=== PATIENT | female | born 1935 | race Caucasian/White ===

== ENCOUNTER 2016-09-20 13:37 | Observation (INO) | payer OTHER, MEDICARE ==
[~2016-09-20] VITALS: Ht 157.5 cm; Wt 48.1 kg
[~2016-09-20 13:37] MED LIST: ASPIR 8181 MG PO; ASPIRIN EC81 M1 PO; AUGMENTIN 875 M1 TAB PO; BENZONATATE100 MG PO; CALCIUM + D 6001 TAB PO; CENTRUM SILVER1 EAC3 PO; CITRUCEL PO; DONEPEZIL HCL5 MG PO; ENABLEX15 M1 PO; ENABLEX15 MG PO; ISOSORBIDE MONO30 M1 PO; ISOSORBIDE MONO30 MG PO; METOPROLOL SUCC25 MG PO; MIDODRINE HCL2.5 M1 PO; MIDODRINE PO; VITAB121000 PO; VYTORIN; VYTORIN 10 MG-41 TAB PO; VYTORIN 10-401 EACH PO
--- NOTE | 2016-09-20 13:44 | NUR ---
PT C/O FEELING DIZZY SINCE TUESDAY. TAKES MIDODRINE 2.5 MG FOR ORTHOSTATIC HYPOTENSION. PT DENIES NAUSEA, STATES WHEN SHE EVEN MOVES HER HEAD NOW SHE BECOMES DIZZY
[2016-09-20] MEDS ORDERED: ALENDRONATE SOD70 M2 PO (14:26)
[2016-09-20] MEDS ORDERED: VITAMIN D31000 UNI2 PO (14:27)
[2016-09-20] MEDS ORDERED: VITAMIN B-121000 MC3 PO (14:27)
--- NOTE | 2016-09-20 14:59 | ED AMS/SEIZURE/WEAK/DIZZY ---
History of Present Illness General Chief Complaint: Dizziness Stated Complaint: DIZZY-PT HAS DEMETIA PER FAMILY MEMBER Source: patient, family, old records Exam Limitations: dementia Vital Signs & Intake/Output Vital Signs & Intake/Output Vital Signs Date Time Temp Pulse Resp B/P Pulse O2 O2 Flow FiO2 Ox Delivery Rate 09/20 2212 96.9 52 18 150/70 95 Room Air 09/20 2025 96.9 58 18 154/84 96 Room Air 09/20 1851 97.0 55 19 171/81 98 Room Air Room Air 09/20 1422 Room Air Room Air 09/20 1343 98.4 59 20 119/71 96 Room Air Allergies Coded Allergies: docusate (From COLACE) (PER PT DOESNT REMEMBER REACTION 10/27/15) Reconcile Medications Alendronate Sodium 70 MG TABLET 1 TAB PO QMON BONE (Reported) in the morning, at least 30 minutes before the first food, beverage, or medication of the day Aspirin (Ecotrin*) 81 MG TABLET.DR 1 TAB PO DAILY HEART HEALTH (Reported) Cholecalciferol (Vitamin D3) 1,000 UNIT TABLET 1 TAB PO DAILY SUPPLEMENT ( Reported) Cyanocobalamin (Vitamin B-12) 1,000 MCG TABLET 1 TAB PO DAILY SUPPLEMENT ( Reported) Darifenacin Hydrobromide (Enablex) 15 MG TAB.ER.24H 1 TAB PO DAILY BLADDER ( Reported) Donepezil HCl 5 MG TABLET 1 TAB PO DAILY DEMENTIA (Reported) Ezetimibe/Simvastatin (Vytorin 10-40 MG Tablet) 1 EACH TABLET 1 TAB PO DAILY CHOLESTEROL (Reported) Isosorbide Mononitrate (Isosorbide Mononitrate ER) 30 MG TAB.ER.24H 1 TAB PO DAILY HEART (Reported) Midodrine HCl 2.5 MG TABLET 1 TAB PO BID BP (Reported) Multivit-Min/FA/Lycopen/Lutein (Centrum Silver Tablet) 0.4 MG-300 MCG-250 MCG TABLET 1 TAB PO DAILY SUPPLEMENT (Reported) Triage Note: PT C/O FEELING DIZZY SINCE TUESDAY. TAKES MIDODRINE 2.5 MG FOR ORTHOSTATIC HYPOTENSION. PT DENIES NAUSEA, STATES WHEN SHE EVEN MOVES HER HEAD NOW SHE BECOMES DIZZY Triage Nurses Notes Reviewed? yes HPI: 81 yo F PMH HTN, HLD, CAD/MN, orthostatic hypotension (on midodrine) presenting with dizziness. Patient has dementia, poor short term memory, limited historian, endorses dizziness described as lightheadedness, minimal "room spinning", denies chest pain, SOB, palpitations, AP, N/V, HEENT Sx. Per family patient has been complaining of dizziness for the past 3-4 days, constant, difficulty ambulating around the house, using stool as makeshift walker, denies falls, trauma, no other neurologic Sx. Patient has hx of orthostatic hypotension, takes midodrine, spoke with firearms expert for assistance, sent to ED for evaluation. (CITLALY YANCEY MD) Past History Travel History Traveled to [place] past 21 day No Medical History Any Pertinent Medical History? none Neurological: NONE EENT: cataracts Cardiovascular: CAD, hypertension, hyperlipidemia Respiratory: NONE Gastrointestinal: diverticulitis Hepatic: NONE Renal: NONE Musculoskeletal: NONE Psychiatric: NONE Endocrine: NONE Blood Disorders: NONE Cancer(s): NONE MEDICAL SECRETARY/Reproductive: NONE History of MRSA: No History of VRE: No History of CDIFF: No Surgical History Surgical History: WRIST SURGERY Psychosocial History Who do you live with Spouse Services at Home NONE What is your primary language Belarusian Tobacco Use: Quit >30 days ago ETOH Use: denies use Illicit Drug Use: denies illicit drug use Family History Family History, If Any: Relation not specified for: *No pertinent family history Hx Contributory? Yes (CITLALY YANCEY MD) Review of Systems Review of Systems Constitutional: Denies: chills, fever. EENTM: Denies: blurred vision, double vision, ear pain, hearing changes. Respiratory: Denies: cough, orthopnea, wheezing. Cardiovascular: Denies: chest pain, palpitations, peripheral edema, syncope. GI: Reports: no symptoms. Genitourinary: Reports: no symptoms. Musculoskeletal: Reports: no symptoms. Skin: Reports: no symptoms. Neurological/Psychological: Reports: confusion, dementia. Denies: ataxia, headache, numbness, paresthesia, weakness. Hematologic/Endocrine: Reports: no symptoms. Immunologic/Allergic: Reports: no symptoms. All Other Systems: Reviewed and Negative (CITLALY YANCEY MD) Physical Exam Physical Exam General Appearance: no apparent distress, alert, awake Head: atraumatic, normal appearance Eyes: Bilateral: normal appearance, PERRL, EOMI. Ears, Nose, Throat: normal pharynx Neck: normal inspection, supple, full range of motion Respiratory: normal breath sounds, no respiratory distress, lungs clear Cardiovascular: regular rate/rhythm, normal peripheral pulses Gastrointestinal: normal bowel sounds, soft, non-tender Back: normal inspection, normal range of motion Extremities: normal range of motion Neurologic/Psych: See below Comments: Neurologic Exam: Cranial nerves intact, speech fluid (at baseine per family), no visual field deficits, No pronator drift, no sensory deficits in extremities, strength 5/5 throughout, normal [id number] and [id number] testing, gait testing deferred Core Measures ACS in differential dx? Yes CVA/TIA Diagnosis: No Severe Sepsis Present: No Septic Shock Present: No (NAYE XIONG,CITLALY) Progress Differential Diagnosis: arrythmia, benign positional vertigo, CVA/stroke, labrynthitis, Meniere's disease, postural hypotension, presyncope Plan of Care: Orders Procedure Date/time Status Place in observation 09/20 2221 Active EKG 09/20 2031 Active TROPONIN LEVEL 09/20 1903 Complete MISTAKE 09/20 1448 Active TROPONIN LEVEL 09/20 1448 Complete CBC WITHOUT DIFFERENTIAL 09/20 1448 Complete BASIC METABOLIC PANEL 09/20 1448 Complete EKG 09/20 1344 Active Laboratory Tests 09/20/16 1903: Troponin I 0.02 09/20/16 1610: Anion Gap 9, Estimated GFR > 60, BUN/Creatinine Ratio 20.0, Glucose 85, Calcium 9.3, Troponin I 0.01 09/20/16 1535: CBC w Diff NO MAN DIFF REQ, RBC 4.40, MCV 95.5, MCH 32.0 H, RDW 14.4, MPV 10.5 H, Gran % 64.5, Lymphocytes % 24.6, Monocytes % 8.6, Eosinophils % 1.7, Basophils % 0.6, Absolute Granulocytes 5.6, Absolute Lymphocytes 2.1, Absolute Monocytes 0.7 H, Absolute Eosinophils 0.1, Absolute Basophils 0.1, PUBS MCHC 33.5 Physician MDM: 81 yo F PMH HTN, HLD, CAD, postural hypotension presenting with dizziness x 3 days. HR high 50s, otherswise VSS, neurologic exam as above. DDx: Orthostasis/postural hypotension, ACS, symptomatic bradycardia, less likely peripheral vertigo (BPPV, labrynthitis, ect.) or central vertigo (CVA). ECG with new TWI II, III, aVF, V5-V6. Troponin 0.01. CBC, BMP unremarkable. On re- examiantion patient subjectively improved, dizziness resolved, sitting upright in bed without complaints. Discussed case with Dr. Presley (patients firearms expert ), discussed ECG changes, no changes to midodrine dosing, if 2nd troponin negative and patient remains symptomatic, ok to discharge with outpatient cardiology follow up. Plan for 2nd troponin and patient still asymptomatic D/C. D/W Dr. Alfred. (NAYE XIONG,CITLALY) Initial ED EKG: normal sinus rhythm (CITLALY AYNCEY MD) Comments: 09/20/2016 8:32:09 PM patient signed out to me by Dr. Yancey. Repeat EKG and troponin pending. 09/20/2016 9:09:04 PM patient repeat EKG shows resolution of T-wave inversions seen on previous EKG. I am paging Dr. Presley. Madalyn is asymptomatic at this time. (RICHAR XIONG,COLLINS Hinton) Departure Departure Disposition: HOME OR SELF CARE Condition: Stable Clinical Impression Primary Impression: Dizziness Referrals: KEYUR ROSE-BERKLEY,NATACHA Martínez (PCP/Family) Departure Forms: Customer Survey General Discharge Information (NAYE XIONG,CITLALY) Observation Note Spoke With: VIOLETTE MCCALL MD Physician Advisor Notified: MELISSA XIONG,PANCHO Up Place Patient In: Non-ED OBS Care Area Rationale for Observation: My rational for observation is as follows patient has a history of coronary artery disease and myocardial infarction and hypertension. She is also 81 years old. She has reversible EKG changes documented in this emergency department. She presented with dizziness that could very well be related to cardiac disease. I do not feel she is a good candidate for outpatient management at this time based on her dynamic EKG changes. I feel that if she exerts herself she could precipitate acute coronary syndrome or MN. I feel she now requires tenuous cardiac monitoring and continued serial troponin determinations and EKGs. Cardiology consultation showed also be obtained review and adjustment of the patient's medical management. (RICHAR XIONG,COLLINS Hinton) Departure Comments 09/20/16 I've seen and personally examined the patient and I agree with Dr Branham evaluation. Patient awake and alert. No complaints on my evaluation. Nonspecific EKG changes. Serial troponins and repeat EKG, care reviewed with the patient's firearms expert. (COLLINS LAFRED DO)
--- NOTE | 2016-09-20 15:41 | NUR ---
LABS DRAWN AND SENT (BLUE,SST,PINK,LAV,JUSTICE)
--- NOTE | 2016-09-20 15:55 | NUR ---
AMBULATED PT AT THIS TIME NO ASSIST NEEDED
[2016-09-20 15:56] LABS: ABSOLUTE BASOPHIL COUNT 0.1 /CUMM (0.0-0.2); ABSOLUTE EOSINOPHIL COUNT 0.1 /CUMM (0.0-0.7); ABSOLUTE GRANULOCYTE CT 5.6 /CUMM (1.4-6.5); ABSOLUTE LYMPH COUNT 2.1 /CUMM (1.2-3.4); ABSOLUTE MONOCYTE COUNT 0.7 /CUMM (0.10-0.60); BASOPHIL % 0.6 % (0.0-2.0); EOSINOPHIL % 1.7 % (0-5); GRANULOCYTE % 64.5 % (42.2-75.2); MEAN CORPUSCULAR HGB CONC 33.5 G/DL (33.0-37.0); MEAN CORPUSCULAR VOLUME 95.5 FL (81.0-99.0); MEAN PLATELET VOLUME 10.5 FL (7.4-10.4); PLATELET COUNT 205 /CUMM (130-400); RBC DISTRIBUTION WIDTH 14.4 % (11.5-14.5); WHITE BLOOD CELL COUNT 8.6 /CUMM (4.8-10.8)
--- NOTE | 2016-09-20 16:01 | NUR ---
SST HEMOLYZED. NEEDS REDRAW.
--- NOTE | 2016-09-20 19:00 | NUR ---
PER PT WILL HAVE REPEAT EKG AND TROP.
--- NOTE | 2016-09-20 22:24 | NUR ---
AT BEDSIDE FOR EVAL AT THIS TIME
--- NOTE | 2016-09-20 23:22 | NUR ---
PT MEDICATED WITH MIDODRINE AND NS INFUSING AT THIS AT 75ML/HR AT THIS TIME. DENIES ANY COMPLAINTS.
[2016-09-21 00:50] VITALS: BP 180/80
--- NOTE | 2016-09-21 01:30 | History & Physical ---
CARLITOS XIONG,WILFREDO 09/21/16 0130: General Information and HPI MD Statement: I have seen and personally examined SHIRLEY RAMIRES and documented this H&P. The patient is a 81 year old F who presented with a patient stated chief complaint of [dizziness]. 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 Given patient's baseline dementia and poor memory she is a very limited historian. During the interview she was unsure of why she was admitted though she admitted some dizziness earlier during the day. She could not corroborate any further details. At the time she denies any chest pain, shortness of breath, palpitations, nausea, or vomiting. There is no family member in the room to corroborate any further details. But per ED documentation, patient had been complaining of dizziness for the past 3-4 days along with difficulty with ambulation. Normally she does not require assistance for walking, but at this time she is apparently using a stool as a makeshift walker. No other neurologic deficits were noted by family members. Of note, patient has had previous admissions at [facility]. Pt was seen in 2015 for pneumonia and collapse of an upper lobe. Subsequently, in September she was admitted for dizziness, orthostasis and bradycardia. At that time patient did not want to pursue aggressive management including pacemaker. A nuclear stress test in November 2013 showed ischemia that she also did not want to aggressively pursue. Her echo in September 2013 showed no obvious regional wall motion abnormalities and EF of 65% Initial EKG during this admission showed T-wave inversions but a repeat EKG within 30 minutes showed resolution of the t-waves. Allergies/Medications Allergies: Coded Allergies: docusate (From COLACE) (PER PT DOESNT REMEMBER REACTION 10/27/15) Home Med list Alendronate Sodium 70 MG TABLET 1 TAB PO QMON BONE (Reported) in the morning, at least 30 minutes before the first food, beverage, or medication of the day Aspirin (Ecotrin*) 81 MG TABLET.DR 1 TAB PO DAILY HEART HEALTH (Reported) Cholecalciferol (Vitamin D3) 1,000 UNIT TABLET 1 TAB PO DAILY SUPPLEMENT ( Reported) Cyanocobalamin (Vitamin B-12) 1,000 MCG TABLET 1 TAB PO DAILY SUPPLEMENT ( Reported) Darifenacin Hydrobromide (Enablex) 15 MG TAB.ER.24H 1 TAB PO DAILY BLADDER ( Reported) Donepezil HCl 5 MG TABLET 1 TAB PO DAILY DEMENTIA (Reported) Ezetimibe/Simvastatin (Vytorin 10-40 MG Tablet) 1 EACH TABLET 1 TAB PO DAILY CHOLESTEROL (Reported) Isosorbide Mononitrate (Isosorbide Mononitrate ER) 30 MG TAB.ER.24H 1 TAB PO DAILY HEART (Reported) Midodrine HCl 2.5 MG TABLET 1 TAB PO BID BP (Reported) Multivit-Min/FA/Lycopen/Lutein (Centrum Silver Tablet) 0.4 MG-300 MCG-250 MCG TABLET 1 TAB PO DAILY SUPPLEMENT (Reported) Compliance With Home Meds: UNKNOWN Past History Travel History Traveled to [place] past 21 day No Medical History Neurological: NONE EENT: cataracts Cardiovascular: CAD, hypertension, hyperlipidemia, NSTEMI Respiratory: NONE, pneumonia Gastrointestinal: diverticulitis Hepatic: NONE Renal: NONE Musculoskeletal: NONE Psychiatric: NONE Endocrine: NONE Blood Disorders: NONE Cancer(s): NONE HVAC DESIGNER/Reproductive: NONE History of MRSA: No History of VRE: No History of CDIFF: No Surgical History Surgical History: WRIST SURGERY Past Family/Social History Family History Relations & Conditions if any Relation not specified for: *No pertinent family history Psychosocial History Where do you live? Home Who Do You Live With? self Services at Home: NONE Primary Language: Gambian Smoking Status: Unknown If Ever Smoked ETOH Use: denies use Illicit Drug Use: denies illicit drug use Functional Ability ADLs Independent: dressing, eating, toileting, bathing. Ambulation: independent IADLs Independent: shopping, housework, finances, food prep, telephone, transportation , medication admin. Review of Systems Review of Systems Constitutional: Reports: no symptoms. EENTM: Denies: blurred vision, double vision, eye pain. Cardiovascular: Denies: chest pain, palpitations, syncope. Respiratory: Denies: cough, short of breath. GI: Denies: abdominal pain, nausea, vomiting. Genitourinary: Denies: pain. Musculoskeletal: Reports: no symptoms. Skin: Reports: no symptoms. Neurological/Psychological: Reports: no symptoms. Exam & Diagnostic Data Last 24 Hrs of Vital Signs/I&O Vital Signs Date Time Temp Pulse Resp B/P Pulse O2 O2 Flow FiO2 Ox Delivery Rate 09/21 0050 97.4 62 20 180/80 95 Room Air 09/20 2213 96.9 52 18 150/70 95 Room Air 09/20 2026 96.9 58 18 154/84 96 Room Air 09/20 1851 97.0 55 19 171/81 98 Room Air Room Air 09/20 1422 Room Air Room Air 09/20 1343 98.4 59 20 119/71 96 Room Air Intake & Output 09/21 0800 09/21 0000 09/20 1600 Intake Total 0 Output Total 600 Balance -600 0 Intake, Oral 0 Output, Urine 600 Patient 483.983 kg Weight Physical Exam General Appearance Alert, Cooperative, No Acute Distress Skin No Rashes, No Breakdown, No Significant Lesion HEENT Atraumatic, PERRLA, EOMI, Mucous Membr. moist/pink Neck Supple Cardiovascular Regular Rate, Normal S1, Normal S2 Lungs Normal Air Movement Abdomen Soft, No Tenderness Neurological Normal Speech, Strength at 5/5 X4 Ext, Normal Tone, Sensation Intact, Cranial Nerves 3-12 NL Extremities Normal Pulses Last 24 Hrs of Labs/Unruly: Laboratory Tests 09/20/16 1903: Troponin I 0.02 09/20/16 1610: Anion Gap 9, Estimated GFR > 60, BUN/Creatinine Ratio 20.0, Glucose 85, Calcium 9.3, Troponin I 0.01 09/20/16 1535: CBC w Diff NO MAN DIFF REQ, RBC 4.40, MCV 95.5, MCH 32.0 H, RDW 14.4, MPV 10.5 H, Gran % 64.5, Lymphocytes % 24.6, Monocytes % 8.6, Eosinophils % 1.7, Basophils % 0.6, Absolute Granulocytes 5.6, Absolute Lymphocytes 2.1, Absolute Monocytes 0.7 H, Absolute Eosinophils 0.1, Absolute Basophils 0.1, PUBS MCHC 33.5 Assessment/Plan Assessment: This is an 81-year-old female past medical history significant for CAD, and STEMI, SA node dysfunction with first-degree A-V block and LAFB, dementia, orthostatic hypotension on Midrin presented with chief complaint of dizziness. In ED she was noted to have EKG changes. Given significant cardiac history with dynamic EKG changes, patient was admitted to telemetry for ACS rule out. PLAN: 1. EKG changes: In ED patient was noted to have T-wave inversions. Repeat EKG within 30 minutes returned to baseline. She does have a history of CAD. Patient denies any chest pain at this time. * Monitor on telemetry * Monitor EKG and troponin * Echocardiogram * IV hydration * Cardiology consult in a.m. 2. Dizziness: Patient came in for CC dizziness. She has had previous admission for same reason. At that time she was started on Midodrine. She continues to be on this medication. In ED she was found to be bradycardic with heart rate as low as 52. Her blood pressure between 120/71 and 180/80. Satting well on room air. Glucose 85. * Gentle hydration * Continue Midrin * Orthostatic vitals qshift 3. Dementia. Chronic and stable * Continue donepezil 5 mg by mouth daily 4. Hx of HTN/HLD: Chronic and stable * Continue atorvastatin 20 mg by mouth daily * Continue Imdur 30 mg by mouth daily * Continue baby aspirin DNR/DNI REGULAR DIET CHEMICAL DVT PPX As Ranked By This Provider Problem List: 1. Dizziness 2. Bradycardia 3. Orthostatic hypotension Core Measures/Miscellaneous Acute Coronary Syndrome ACS Diagnosis: No Cerebrovascular Accident CVA/TIA Diagnosis: No Congestive Heart Failure CHF Diagnosis: No Venous Thromboembolism VTE Risk Factors: Acute medical illness, Age > 40 VTE Prophylaxis Ordered Inpt: Pharm- Lovenox No Mech VTE prophylaxis d/t: No contraindications No VTE Pharm Prophylaxis d/t: No contraindications VTE Diagnosis: No VTE Type: NONE VTE Confirmed by (Test): NONE Severe Sepsis Severe Sepsis Present: No Septic Shock Septic Shock Present: No Miscellaneous Documentation Attending Case Discussed With: STEFANY XIONG,VIOLETTE Primary Care Physician: NATACHA TREJO Patient sees these Specialists Dr. Presley Level of Patient Care: Telemetry Consults Needed: Consulting Specialty: Cardiology ABHINAV XIONG,SUSIE 09/21/16 0140: Resident Review Statement Resident Statement: examined this patient, discussed with customer experience intern Other Findings: This is an 81-year-old lady with a past history significant for hypertension, hyperlipidemia coronary artery disease status post VA, chronic orthostatic hypotension on Midrin, poor historian secondary to dementia, presented to the emergency room this evening with a chief complaint of dizziness and lightheadedness which she described as "room spinning". Stay lasted a few minutes without any other symptoms, no chest pain, no shortness of breath, no palpitations. Per family she had been complaining of dizziness for the past few days. Physical exam Vital signs are stable Lungs clear to auscultation bilaterally Cardiovascular exam, faint 1/6 holosystolic murmur Abdomen soft, nontender, bowel sounds are present Neuro exam intact Labs are benign 2 sets of troponin thus far have been negative Assessment- 1. Dizziness, has a history of chronic vertigo, stroke unlikely 2. History of hypertension 3. History of hyperlipidemia 4. History of dementia Plan- Telemetry admit Trend troponin and EKG Echocardiogram IV fluid hydration Carotid Dopplers Cardiology consult in a.m. Pain pathway Heart healthy diet DVT prophylaxis with subcutaneous heparin DNR/I STEFANY XIONG, [facility] 09/21/16 0212: Attending MD Review Statement Attending Statement Attending MD Statement: examined this patient, discuss w/resident/PA/WEAVING INSTRUCTOR, agreed w/resident/PA/WEAVING INSTRUCTOR Attending Assessment/Plan: 81 yo F with h/o dementia, CAD s/p VA, HTN, orthostatic hypotension on midodrine , cardiac conduction disease (sinus node dysfunction) with previous asymptomatic bradycardia, is here for episodes of dizziness especially when getting up from sitting or lying down position. She reports it is more of 'spinning sensation', but never felt she is going to 'pass out'. Patient denies any symptoms on my eval. No nausea, vomiting, diarrhea or urinary symptoms. I spoke with patient's manohar who reports that over the past 1 week, patient has had more frequent dizzy spells where in once she was about to fall however did not. Patient is most of the times not able to follow the practice of getting up slowly. Patient is pretty active and likes to do her routine household activities. She was admitted for similar in September 2015. Vitals are stable except for positive orthostats. Neuro exam nonfocal. Labs: unremarkable. Initial EKG: SR with TWI in lead V4-6 and inferior leads. Troponin was neg. Repeat EKG shows resolution of the TWI. Echo (2015): EF 65%, no pulmonary htn. 1. Dizziness 2/2 orthostatic hypotension, rule out arrhythmias. 23 Obs on Tele, gentle hydration. Recehck orthostats in AM. Continue midodrine. Provide compression stockings. 2. EKG changes. Serial EKG and troponin, obtain Echo, Cardio consult. DVT ppx Lovenox. DNR/I.
[2016-09-21 08:38] VITALS: BP 176/78
[2016-09-21 10:11] VITALS: BP 130/54
--- NOTE | 2016-09-21 10:35 | Patient Discharge Instructions ---
Discharge Instructions General Discharge Information You were seen/treated for: Dizziness due to orthostatic hypotension Special Instructions: Please follow up with PCP and workers compensation consultant in 1 week. - Please take the midodrine 3X/day instead of 2X/day. 30 day script has been sent to [facility]. Diet Continue normal diet: Yes Recommended Diet: Heart Healthy Activity Full Activity/No Limits: Yes Acute Coronary Syndrome Inclusion Criteria At DC or during hospital stay patient has or had the following: ACS DIAGNOSIS No Discharge Core Measures Meds if any: Prescribed or Continued at Discharge Meds if any: NOT Prescribed or Continued at Discharge Congestive Heart Failure Inclusion Criteria At DC or during hospital stay patient has or had the following: CHF DIAGNOSIS No Discharge Core Measures Meds if any: Prescribed or Continued at Discharge Meds if any: NOT Prescribed or Continued at Discharge Cerebrovascular accident Inclusion Criteria At DC or during hospital stay patient has or had the following: CVA/TIA Diagnosis No Discharge Core Measures Meds if any: Prescribed or Continued at Discharge Meds if any: NOT Prescribed or Continued at Discharge Venous thromboembolism Inclusion Criteria VTE Diagnosis No VTE Type NONE VTE Confirmed by (Test) NONE Discharge Core Measures - Per Current guidelines, there needs to be overlap - treatment for the first 5 days of Warfarin therapy. - If discharged on Warfarin prior to 5 days of - overlap therapy, the patient will need to be - assessed for post discharge needs including - *Post discharge parental anticoagulation - *Warfarin and/or parental anticoagulation education - *Follow up date to check INR post discharge At least 5 days overlap therapy as Inpatient No Meds if any: Prescribed or Continued at Discharge Note: Overlap Therapy is Warfarin and Anticoagulant Meds if any: NOT Prescribed or Continued at Discharge
[2016-09-21 11:37] VITALS: BP 116/54
--- NOTE | 2016-09-21 14:46 | Discharge Summary ---
Visit Information Visit Dates Admission Date: 09/20/16 Discharge Date: 09/21/16 Hospital Course Course Attending Physician: Dr. 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 She was observed for 24 hours, with resolution of the T wave inversions and negative troponins. No events on telemetry. The dizziness is most likely due to orthostatic hypotension, since she gives hx of getting dizzy when she moves quickly. The orthostats vitals today was negative. Echocardiogram was done, results still pending. Pt was instructed to follow up with PCP and human factors advisor lead. Pt discharged on midodrine 3X/day. At discharge, niece reported that pt was dizzy, although pt herself denied it. Allergies: Coded Allergies: docusate (From COLACE) (PER PT DOESNT REMEMBER REACTION 10/27/15) Disposition Summary Disposition Principal Diagnosis: Dizziness due to orthostatic hypotension Additional Diagnosis: Bradycardia Discharge Disposition: home health services Discharge Instructions General Discharge Information Code Status: Do Not Resucitate/Intubat Patient's Diet: Heart healthy Patient's Activity: As tolerated Follow-Up Instructions/Appts: You were seen/treated for: Dizziness due to orthostatic hypotension Special Instructions: Please follow up with PCP and human factors advisor lead in 1 week. Medications at Discharge Discharge Medications: Continue taking these medications: Aspirin (Ecotrin*) 81 MG TABLET. 1 Tablet ORAL DAILY Comments: Last Taken: 09/21/16 Time: 9:00 AM Multivit-Min/FA/Lycopen/Lutein (Centrum Silver Tablet) 0.4 MG-300 MCG-250 MCG TABLET 1 Tablet ORAL DAILY Comments: NOT GIVEN IN HOSPITAL Isosorbide Mononitrate (Isosorbide Mononitrate ER) 30 MG TAB.ER.24H 1 Tablet ORAL DAILY Comments: Last Taken: 09/21/16 Time: 9:00 AM Donepezil HCl (Donepezil HCl) 5 MG TABLET 1 Tablet ORAL DAILY Qty = 30 Comments: Last Taken: 09/21/16 Time: 9:00 AM Darifenacin Hydrobromide (Enablex) 15 MG TAB.ER.24H 1 Tablet ORAL DAILY Comments: NOT GIVEN IN HOSPITAL Ezetimibe/Simvastatin (Vytorin 10-40 MG Tablet) 1 EACH TABLET 1 Tablet ORAL DAILY Comments: NOT GIVEN IN HOSPITAL Alendronate Sodium (Alendronate Sodium) 70 MG TABLET 1 Tablet ORAL EVERY TUESDAY Qty = 12 Instructions: in the morning, at least 30 minutes before the first food, beverage, or medication of the day Comments: NOT GIVEN IN HOSPITAL Cyanocobalamin (Vitamin B-12) 1,000 MCG TABLET 1 Tablet ORAL DAILY Comments: NOT GIVEN IN HOSPITAL Cholecalciferol (Vitamin D3) 1,000 UNIT TABLET 1 Tablet ORAL DAILY Comments: NOT GIVEN IN HOSPITAL Midodrine HCl (Midodrine HCl) 2.5 MG TABLET 1 Tablet ORAL THREE TIMES DAILY Qty = 90 Instructions: Please follow up with Dr. Presley Comments: Last Taken: 09/21/16 Time: 9:00 AM This prescription has been renewed Copies To: KEYUR BOWER,NATACHA Martínez; LIS XIONG,NIRAV Krueger Attending MD Review Statement Documenting Attending: MAXIMO LIRIANO M.D Other Findings: Patient seen and examined. Lying comfortably and not in any acute distress. Very jovial lady. She was brought to the emergency room for evaluation by family due to complaints of dizziness. No family admits that she does get dizzy on and off they reported unusual in that patient found the symptoms significant enough to complain about it. In the emergency room she was found to have ischemic EKG changes was placed on observation status for further workup. Overnight patient remained asymptomatic. EKG changes have resolved. She did have positive orthostatic changes. She was followed by her human factors advisor lead recommendations at this time to increase her midodrine from twice daily to 3 times a day. Her symptoms are chronic and her family has been counseled on appropriate behavioral changes. They report that patient has used compression stockings in the past and does not like using them. with regards to her ischemic EKG changes cardiac catheterization would be with increasing however given her age and dementia as well as her current asymptomatic status conservative measures are being pursued for now and further discussions will continue as an outpatient with the cardiology service. She is not on any beta jayda or JOSE inhibitor due to her orthostatic hypotension. She is medically stable to be discharged home today.
[2016-09-21 16:38] VITALS: BP 152/72
[2016-09-21] MEDS ORDERED: MIDODRINE HCL2.5 M1 PO (17:20)
--- NOTE | 2016-09-21 17:43 | Cons- Cardiology ---
General Information and HPI Consulting Request Date of Consult: 09/21/16 Requested By: STEFANY XIONG,VIOLETTE Reason for Consult: New electrocardiographic changes. Source of Information: patient, old records Exam Limitations: dementia History of Present Illness: Mrs. Madalyn Ocampo is an 81-year-old female with a history of hypertension, dyslipidemia, and coronary artery disease (NSTEMI 02/15/1998; s/p cardiac catheterization [facility] [02/19/1998] that revealed diffusely small caliber vessels: LM-normal, LAD-mid mild [50%] narrowing, mild [50%] proximal and mid critical [99%] stenosis secondary diagonal branch, large, codominant LCx with total occlusion OM, large, codominant RCA with catheter- induced ostial spasm relieved with SL NTG; positive nuclear stress [12/19/2013] without symptoms or ST changes) and orthostatic hypotension who became "dizzy" while shopping yesterday with her nieces and who was recommended ED evaluation. In the ED she was again found to be orthostatic, but was also found to have "new", transient ST-T wave abnormalities consistent with possible ischemia that spontaneously resolved. She has had no chest discomfort, shortness of breath, palpitations, etc. or evidence of myocardial necrosis by serial cardiac troponins. We have been clinically monitoring the situation, as far as her coronary disease is concerned, as she has not wanted to pursue an aggressive course of management and has been completely asymptomatic despite an active lifestyle. Allergies/Medications Allergies: Coded Allergies: docusate (From COLACE) (PER PT DOESNT REMEMBER REACTION 10/27/15) Home Med List: Alendronate Sodium 70 MG TABLET 1 TAB PO QMON BONE (Reported) in the morning, at least 30 minutes before the first food, beverage, or medication of the day Aspirin (Ecotrin*) 81 MG TABLET.DR 1 TAB PO DAILY HEART HEALTH (Reported) Cholecalciferol (Vitamin D3) 1,000 UNIT TABLET 1 TAB PO DAILY SUPPLEMENT ( Reported) Cyanocobalamin (Vitamin B-12) 1,000 MCG TABLET 1 TAB PO DAILY SUPPLEMENT ( Reported) Darifenacin Hydrobromide (Enablex) 15 MG TAB.ER.24H 1 TAB PO DAILY BLADDER ( Reported) Donepezil HCl 5 MG TABLET 1 TAB PO DAILY DEMENTIA (Reported) Ezetimibe/Simvastatin (Vytorin 10-40 MG Tablet) 1 EACH TABLET 1 TAB PO DAILY CHOLESTEROL (Reported) Isosorbide Mononitrate (Isosorbide Mononitrate ER) 30 MG TAB.ER.24H 1 TAB PO DAILY HEART (Reported) Midodrine HCl 2.5 MG TABLET 1 TAB PO BID BP (Reported) Midodrine HCl 2.5 MG TABLET 1 TAB PO TID BP Please follow up with Dr. Presley Multivit-Min/FA/Lycopen/Lutein (Centrum Silver Tablet) 0.4 MG-300 MCG-250 MCG TABLET 1 TAB PO DAILY SUPPLEMENT (Reported) Review of Systems Review of Systems: A 14 point system review was obtained and was noncontributory, other than for the fact the patient wears glasses and has hearing aids. Past History Travel History Traveled to [place] past 21 day No Medical History Neurological: NONE EENT: cataracts Cardiovascular: CAD, hypertension, hyperlipidemia, NSTEMI Respiratory: NONE, pneumonia Gastrointestinal: diverticulitis Hepatic: NONE Renal: NONE Musculoskeletal: NONE Psychiatric: NONE Endocrine: NONE Blood Disorders: NONE Cancer(s): NONE PROCESS HELPER/Reproductive: NONE Surgical History Surgical History: WRIST SURGERY Family History Relations & Conditions If Any: Relation not specified for: *No pertinent family history Psychosocial History Where Do You Live? Home Who Do You Live With? self Services at Home: NONE Primary Language: Azerbaijani Smoking Status: Unknown If Ever Smoked ETOH Use: denies use Illicit Drug Use: denies illicit drug use Functional Ability ADLs Independent: dressing, eating, toileting, bathing. Ambulation: independent IADLs Independent: shopping, housework, finances, food prep, telephone, transportation , medication admin. Exam & Diagnostic Data Vital Signs and I&O Vital Signs Date Time Temp Pulse Resp B/P Pulse O2 O2 Flow FiO2 Ox Delivery Rate 09/21 1638 97.1 52 15 152/72 93 Room Air 09/21 1137 56 116/54 09/21 1011 68 130/54 09/21 0947 Room Air 09/21 0843 55 176/78 09/21 0838 98.7 55 18 176/78 95 Room Air 09/21 0050 97.4 62 20 180/80 95 Room Air 09/20 2213 96.9 52 18 150/70 95 Room Air 09/20 2025 96.9 58 18 154/84 96 Room Air 09/20 1851 97.0 55 19 171/81 98 Room Air Room Air Intake & Output 09/21 1600 09/21 0800 09/21 0000 09/20 1600 09/20 0800 09/20 0000 Intake Total 820 270 100 0 Output Total 600 Balance 820 270 -500 0 Intake, IV 150 Intake, Oral 820 120 100 0 Output, Urine 600 Patient 106 lb 1067 lb Weight Physical Exam: Well-developed, well-nourished elderly female in no acute distress. Vital signs: See above. HEENT: Normocephalic, atraumatic, EOMI, moist mucous membranes. Neck: No JVD, no bruits. Lungs: Clear to auscultation bilaterally. Heart: S1, S2 with no murmur, gallop, or rub appreciated. PMI fifth ICS at MCL. Abdomen: Soft, nontender, positive bowel sounds. Extremities: No edema. Labs/Unruly Results: Laboratory Tests 09/21 09/20 09/20 09/20 0310 1903 1610 1535 Chemistry Sodium (137 - 145 mmol/L) 139 Potassium (3.5 - 5.1 mmol/L) 4.8 Chloride (98 - 107 mmol/L) 100 Carbon Dioxide (22 - 30 mmol/L) 29 Anion Gap (5 - 16) 9 BUN (7 - 17 mg/dL) 16 Creatinine (0.5 - 1.0 mg/dL) 0.8 Estimated GFR (>60 ml/min) > 60 BUN/Creatinine Ratio (7 - 25 %) 20.0 Glucose (65 - 99 mg/dL) 85 Calcium (8.4 - 10.2 mg/dL) 9.3 Troponin I (< 0.11 ng/ml) 0.03 0.02 0.01 Hematology CBC w Diff NO MAN DIFF REQ WBC (4.8 - 10.8 /CUMM) 8.6 RBC (4.20 - 5.40 /CUMM) 4.40 Hgb (12.0 - 16.0 G/DL) 14.1 Hct (37 - 47 %) 42.0 MCV (81.0 - 99.0 FL) 95.5 MCH (27.0 - 31.0 PG) 32.0 H RDW (11.5 - 14.5 %) 14.4 Plt Count (130 - 400 /CUMM) 205 MPV (7.4 - 10.4 FL) 10.5 H Gran % (42.2 - 75.2 %) 64.5 Lymphocytes % (20.5 - 51.1 %) 24.6 Monocytes % (1.7 - 9.3 %) 8.6 Eosinophils % (0 - 5 %) 1.7 Basophils % (0.0 - 2.0 %) 0.6 Absolute Granulocytes (1.4 - 6.5 /CUMM) 5.6 Absolute Lymphocytes (1.2 - 3.4 /CUMM) 2.1 Absolute Monocytes (0.10 - 0.60 /CUMM) 0.7 H Absolute Eosinophils (0.0 - 0.7 /CUMM) 0.1 Absolute Basophils (0.0 - 0.2 /CUMM) 0.1 PUBS MCHC (33.0 - 37.0 G/DL) 33.5 Diagnostic Data EKG Results 09/20/2016 sinus rhythm, ventricular premature contraction, first degree AV block, LAFB, abnormal precordial transition leads V1-V3 consistent with LVH vs old ASMI, LVH, and ST-T wave abnormalities consistent with ischemia and/or LVH. New ST-T wave abnormalities when compared to venous tracing (10/28/2015). Assessment/Plan Assessment/Plan Mrs. Ocampo is an elderly female with a history of hypertension, dyslipidemia, orthostatic hypotension that has improved, and coronary artery disease which has been managed conservatively given her asymptomatic status, patient/family wishes, etc., but who had transient electrocardiographic changes consistent with ischemia. At this juncture, it is reasonable to consider cardiac catheterization with an eye towards revascularization, as her presentation with "dizziness" could represent an anginal equivalent, although this could also have been from her known orthostatic hypotension. As her electrocardiographic changes have resolved and she has been completely asymptomatic without any evidence of myocardial necrosis, feel that the patient can be discharged to home for further outpatient evaluation and management. Naturally, given her age and multiple comorbidities, including dementia, a discussion will be planned with the patient and family members to determine the most suitable management strategy. As she was orthostatic presentation, it would be reasonable increasing her beta drain from 2.5 mg twice daily while awake to 2.5 mg 3 times daily during waking hours. This is hopefully a small enough change to not induce any ischemia. Would maintain her on her present cardiac regimen presence (antiplatelet, statin , etc.) and consider increasing her long-acting nitrates from isosorbide mononitrate 30 mg daily to 60 mg daily. Note that she had been on beta jayda therapy in the past and this had to be discontinued secondary to bradycardia. We have also considered JOSE inhibitor or ARB therapy in the past, but held off on this due to her orthostatic issues. Further recommendations will follow, Thank you. Consult Acknowledgment - Thank you for your consult request.
--- NOTE | 2016-09-22 11:19 | ECHOCARDIOGRAM REPORT ---
SHIRLEY RAMIRES Age: 81 : 1935 Gender: F Exam Date: 09/21/2016 13:47 Exam Location: 1 [address] Ht (in): 62 Wt (lb): 106 BSA: 1.45 BP: 180 / 80 Ordering Physician: VIOLETTE MCCALL MD Referring Physician: Ortega Presley MD Technologist: Ariadne Smith [facility] Room Number: [id number] Indications: HYPERTENSION Rhythm: Sinus Technical Quality: Good FINDINGS Left Ventricle Normal size left ventricle. Mild concentric left ventricular hypertrophy. Normal left ventricular wall motion. Normal left ventricular ejection fraction visually estimated at >60%. Abnormal relaxation filling pattern of the left ventricle for age (stage 1 diastolic dysfunction). Right Ventricle Normal right ventricular size and function. Right Atrium Normal right atrial size. Left Atrium Normal left atrial size. Mitral Valve Mildly calcified mitral valve annulus. Mitral valve mildly thickened. Mild mitral regurgitation. Aortic Valve Trileaflet aortic valve. Mild aortic sclerosis. No aortic valve stenosis or regurgitation. Tricuspid Valve Structurally normal tricuspid valve. Mild tricuspid regurgitation. No evidence of pulmonary hypertension. Right ventricular systolic pressure estimated to be within the normal range at 29 mmHg. Pulmonic Valve Structurally normal pulmonic valve. Trace pulmonic regurgitation. Pericardium Small pericardial effusion. No echocardiographic findings to suggest a hemodynamically significant pericardial effusion. Great Vessels Normal size aortic root. Mildly dilated inferior vena cava. CONCLUSIONS Normal size left ventricle. Mild concentric left ventricular hypertrophy. Normal left ventricular ejection fraction visually estimated at > 60%. Abnormal relaxation filling pattern of the left ventricle for age (stage 1 diastolic dysfunction). Normal right ventricular size and function. Normal atrial size. Mild mitral regurgitation. Mild tricuspid regurgitation. No evidence of pulmonary hypertension. Trace pulmonic regurgitation. Small pericardial effusion. Mildly dilated inferior vena cava. Ortega Presley M.D. (Electronically Signed) Final Date: 22 September 2016 11:18 MEASUREMENTS (Male / Female) Normal Values 2D ECHO LV Diastolic Diameter PLAX 4.3 cm 4.2 - 5.9 / 3.9 - 5.3 cm LV Systolic Diameter PLAX 2.9 cm 2.1 - 4.0 cm LV Fractional Shortening PLAX 32.6 % 25 - 46 % LV Ejection Fraction 2D Teich 61.2 % IVS Diastolic Thickness 1.2 cm LVPW Diastolic Thickness 1.0 cm LV Relative Wall Thickness 0.5 RV Internal Dim ED PLAX 2.7 cm 1.9 - 3.8 cm LVOT Diameter 1.9 cm Aortic Root Diameter 2.9 cm LA Systolic Diameter LX 3.4 cm 3.0 - 4.0 / 2.7 - 3.8 cm LA Volume 39.0 cm 18 - 58 / 22 - 52 cm Ascending Aorta Diameter 3.2 cm DOPPLER AV Peak Velocity 135.0 cm/s AV Peak Gradient 7.3 mmHg AV Mean Velocity 91.1 cm/s AV Mean Gradient 4.0 mmHg AV Velocity Time Integral 34.1 cm LVOT Peak Velocity 79.0 cm/s LVOT Peak Gradient 2.5 mmHg LVOT Mean Velocity 53.4 cm/s LVOT Mean Gradient 1.0 mmHg LVOT Velocity Time Integral 16.7 cm LVOT Stroke Volume 47.3 cm AV Area Cont Eq vti 1.4 cm AV Area Cont Eq pk 1.7 cm MV Peak Velocity 93.4 cm/s MV Peak Gradient 3.5 mmHg MV Mean Velocity 49.1 cm/s MV Mean Gradient 1.0 mmHg Mitral E Point Velocity 70.1 cm/s Mitral A Point Velocity 81.9 cm/s Mitral E to A Ratio 0.9 MV PHT Velocity 80.8 cm/s MV Deceleration Smyth 204.0 cm/s MV Pressure Half Time 118.8 ms MV Area PHT 1.9 cm MV Deceleration Time 317.0 ms TR Peak Velocity 246.0 cm/s TR Peak Gradient 24.2 mmHg Right Atrial Pressure 5.0 mmHg Pulmonary Artery Systolic Pressu 29.2 mmHg Right Ventricular Systolic Press 29.2 mmHg PV Peak Velocity 86.9 cm/s PV Peak Gradient 3.0 mmHg PV Mean Velocity 59.8 cm/s PV Mean Gradient 2.0 mmHg PV Velocity Time Integral 20.0 cm LV E' Lateral Velocity 6.4 cm/s Mitral E to LV E' Lateral Ratio 10.9 LV E' Septal Velocity 3.3 cm/s Mitral E to LV E' Septal Ratio 21.2
== END 2016-09-21 18:12 | disposition home health service (06) ==
LOC: ENRESERVDT → ENRESERVTM → ERH 13:37 → ERHI 22:21 → 1NO 22:21 → ENPENDDIS 22:21 → 1NO 09-21 00:46
PROVIDERS: Student in an Organized Health Care Education/Training Program; ADMIT Student in an Organized Health Care Education/Training Program
DX: I95.1 Orthostatic hypotension (principal); I10 Essential (primary) hypertension; E78.5 Hyperlipidemia, unspecified; I25.2 Old myocardial infarction; F03.90 Unspecified dementia, unspecified severity, without behavioral disturbance, psychotic disturbance, mood disturbance, and anxiety; R00.1 Bradycardia, unspecified
CPT/HCPCS: 2000; 6020; 36415; 93005; 93010; 93306; 96372; G0378; J1644